=== PATIENT | female | born 1990 | race Caucasian/White ===

== ENCOUNTER 2017-07-25 10:57 | Outpatient (CLI) | payer OTHER | END 2017-07-25 11:01 | disposition home or self-care (01) | LOC: RAD 10:57 → ADM 13:45 | DX: S53.095A Other dislocation of left radial head, initial encounter (principal) ==

== ENCOUNTER → 2017-08-30 07:25 | Outpatient (CLI) | payer OTHER | END | disposition home or self-care (01) | LOC: LAB 07:25 | DX: D64.89 Other specified anemias (principal); N92.1 Excessive and frequent menstruation with irregular cycle; E03.8 Other specified hypothyroidism ==

== ENCOUNTER → 2018-12-08 14:12 | Outpatient (CLI) | payer OTHER | END | disposition home or self-care (01) | LOC: LAB 14:12 | DX: N83.291 Other ovarian cyst, right side (principal) ==

== ENCOUNTER → 2018-12-30 | Outpatient (CLI) | payer OTHER | END | disposition home or self-care (01) | LOC: SONOGRAMA 13:59 | DX: N83.201 Unspecified ovarian cyst, right side (principal) ==

== ENCOUNTER 2019-03-02 08:40 | Outpatient (CLI) | payer OTHER | END 2019-03-02 08:50 | disposition home or self-care (01) | LOC: LAB 08:40 | DX: N39.0 Urinary tract infection, site not specified (principal); R30.0 Dysuria ==

== ENCOUNTER 2019-05-06 15:25 | Outpatient (CLI) | payer OTHER | END 2019-05-06 15:28 | disposition home or self-care (01) | LOC: LAB 15:25 | DX: N39.0 Urinary tract infection, site not specified (principal) ==

== ENCOUNTER 2019-11-04 07:40 | Outpatient (CLI) | payer OTHER | END 2019-11-04 15:00 | disposition home or self-care (01) | LOC: LAB 07:40 | PROVIDERS: ATTEND General Practice | DX: I10 Essential (primary) hypertension (principal); E11.9 Type 2 diabetes mellitus without complications ==

== ENCOUNTER 2020-02-17 13:00 | Emergency (ER) | payer OTHER ==
[~2020-02-17] VITALS: Ht 162.6 cm; Wt 54.4 kg
== END 2020-02-17 15:39 | disposition home or self-care (01) ==
LOC: ER 13:00
DX: B34.9 Viral infection, unspecified (principal); A90 Dengue fever [classical dengue]; Z03.818 Encounter for observation for suspected exposure to other biological agents ruled out

== ENCOUNTER 2020-02-19 15:34 | Emergency (ER) | payer OTHER ==
[~2020-02-19] VITALS: Ht 157.5 cm; Wt 47.6 kg
[2020-02-19] MEDS ORDERED: GIANVI 3 MG-0.1 EACH PO (15:39)
== END 2020-02-19 16:54 | disposition home or self-care (01) ==
LOC: ER 15:34
DX: A90 Dengue fever [classical dengue] (principal)

== ENCOUNTER 2020-02-21 12:36 | Emergency (ER) | payer OTHER ==
[~2020-02-21] VITALS: Ht 157.5 cm; Wt 47.6 kg
[~2020-02-21 12:36] MED LIST: GIANVI 3 MG-0.1 EACH PO
== END 2020-02-21 15:15 | disposition home or self-care (01) ==
LOC: ER 12:36
DX: U07.1 COVID-19 (principal); B34.9 Viral infection, unspecified

== ENCOUNTER 2020-11-11 15:32 | Emergency (ER) | payer OTHER ==
[~2020-11-11] VITALS: Ht 157.5 cm; Wt 48.5 kg
== END 2020-11-11 17:07 | disposition home or self-care (01) ==
LOC: ER 15:32
DX: B34.9 Viral infection, unspecified (principal); Z03.818 Encounter for observation for suspected exposure to other biological agents ruled out

== ENCOUNTER 2021-03-23 | Outpatient (CLI) | payer OTHER | END 2021-03-23 16:40 | disposition home or self-care (01) | LOC: PPH VACUNA | DX: Z23 Encounter for immunization (principal) ==

== ENCOUNTER → 2021-04-04 07:01 | Outpatient (CLI) | payer OTHER | END | disposition home or self-care (01) | LOC: LAB 07:01 | PROVIDERS: ATTEND Emergency Medicine | DX: Z13.1 Encounter for screening for diabetes mellitus (principal); Z11.4 Encounter for screening for human immunodeficiency virus [HIV]; Z13.818 Encounter for screening for other digestive system disorders; Z13.29 Encounter for screening for other suspected endocrine disorder ==

== ENCOUNTER 2021-07-25 00:59 | Emergency (ER) | payer OTHER ==
[~2021-07-25] VITALS: Ht 157.5 cm; Wt 48.5 kg
[2021-07-25] MEDS ORDERED: TRIMETHOBENZAM300 MG (01:09)
[2021-07-25] MEDS ORDERED: CIPRO500 MG PO (04:36)
== END 2021-07-25 04:41 ==
LOC: ER 00:59
DX: N39.0 Urinary tract infection, site not specified (principal); R50.9 Fever, unspecified; Z20.822 Contact with and (suspected) exposure to COVID-19

== ENCOUNTER 2021-12-05 15:13 | Outpatient (CLI) | payer OTHER ==
[~2021-12-05 15:13] MED LIST changes: +CIPRO500 MG PO; +TRIMETHOBENZAM300 MG
== END 2021-12-05 15:18 | disposition home or self-care (01) ==
LOC: PPH VACUNA 15:13
PROVIDERS: ATTEND Emergency Medicine Pediatric Emergency Medicine
DX: Z23 Encounter for immunization (principal)

== ENCOUNTER 2022-08-07 14:34 | Outpatient (CLI) | payer OTHER | END 2022-08-07 14:38 | disposition home or self-care (01) | LOC: RAD 14:34 | DX: M54.2 Cervicalgia (principal); M54.50 Low back pain, unspecified ==

== ENCOUNTER 2022-09-20 06:51 | Outpatient (CLI) | payer OTHER | END 2022-09-20 06:52 | disposition home or self-care (01) | LOC: LAB 06:51 | DX: Z13.1 Encounter for screening for diabetes mellitus (principal); Z13.220 Encounter for screening for lipoid disorders; Z13.29 Encounter for screening for other suspected endocrine disorder; E55.9 Vitamin D deficiency, unspecified ==

== ENCOUNTER 2022-09-30 07:49 | Outpatient (CLI) | payer OTHER | END 2022-09-30 07:58 | disposition home or self-care (01) | LOC: LAB 07:49 | PROVIDERS: ATTEND Internal Medicine | DX: N93.9 Abnormal uterine and vaginal bleeding, unspecified (principal); E55.9 Vitamin D deficiency, unspecified ==

== ENCOUNTER 2022-10-17 07:49 | Outpatient (CLI) | payer OTHER | END 2022-10-17 07:51 | disposition home or self-care (01) | LOC: LAB 07:49 | PROVIDERS: ATTEND General Practice | DX: N39.0 Urinary tract infection, site not specified (principal) ==

== ENCOUNTER 2023-01-01 02:00 | Outpatient (CLI) | payer OTHER | END 2023-01-01 02:10 | disposition home or self-care (01) | LOC: PPH VACUNA 02:00 | PROVIDERS: ATTEND Emergency Medicine Pediatric Emergency Medicine | DX: Z23 Encounter for immunization (principal) | CPT/HCPCS: 90686; G0008 ==

== ENCOUNTER 2023-01-01 14:15 | Outpatient (CLI) | payer OTHER | END 2023-01-01 14:26 | disposition home or self-care (01) | LOC: LAB 14:15 | PROVIDERS: ATTEND Obstetrics & Gynecology | DX: N91.1 Secondary amenorrhea (principal) ==

== ENCOUNTER 2024-01-01 03:00 | Outpatient (CLI) | payer OTHER | END 2024-01-01 03:15 | disposition home or self-care (01) | LOC: PPH VACUNA 03:00 | PROVIDERS: ATTEND Emergency Medicine Pediatric Emergency Medicine | DX: Z23 Encounter for immunization (principal) ==

== ENCOUNTER 2024-05-02 17:43 | Emergency (ER) | payer OTHER ==
[~2024-05-02] VITALS: Ht 157.5 cm; Wt 52.6 kg
[2024-05-02] MEDS ORDERED: ELVITEG/COB/EMTRI/TENOFO DISOP 1 UDTAB TABLET PO STA (18:56)
[2024-05-02] MEDS ORDERED: ELVITEG/COB/EMTRI/TENOFO DISOP 1 UDTAB TABLET PO ONE (19:35)
== END 2024-05-02 19:39 | disposition home or self-care (01) ==
LOC: ER 17:43
DX: S61.247A Puncture wound with foreign body of left little finger without damage to nail, initial encounter (principal); Y65.8 Other specified misadventures during surgical and medical care; Y93.F9 Activity, other caregiving; Y92.230 Patient room in hospital as the place of occurrence of the external cause